=== PATIENT | female | born 1945 | race Caucasian/White ===

== ENCOUNTER → 2021-07-01 | Outpatient (CLI) | payer MEDICARE, OTHER | LOC: HEART 5 12:25 | DX: R06.00 Dyspnea, unspecified (principal); R04.2 Hemoptysis | CPT/HCPCS: 94060; 94729 ==

== ENCOUNTER → 2021-08-19 | Day surgery (SDC) | payer MEDICARE, OTHER ==
[~2021-08-19] MED LIST: ALPRAZOLAM0.5 MG PO; ASPIRIN325 MG PO; DESYREL 50 MG T50 MG PO; DULOXETINE HCL30 MG PO; FUROSEMIDE20 MG PO; GLUCOPHAGE 850850 MG PO; HYDROCODON-ACE1 EAC4 PO; LEVOTHYROXINE50 MCG PO; LISINOPRIL10 MG PO; PROVENTIL HFA6.7 GM INH; SYMBICORT 16010.2 GM INH; THEOPHYLLINE600 MG PO; VERAPAMIL ER240 MG PO
[2021-08-19 06:52] LABS: HEMOGLOBIN 14.7 gm/dl (12.3-15.3); RED BLOOD COUNT 4.2 M/UL (4.00-5.10); WHITE BLOOD COUNT 7.2 K/UL (4.5-11.0)
== END | disposition home or self-care (01) ==
LOC: OR 06:05
PROVIDERS: Internal Medicine Critical Care Medicine
DX: R04.2 Hemoptysis (principal); R06.02 Shortness of breath; R94.31 Abnormal electrocardiogram [ECG] [EKG]; Z20.822 Contact with and (suspected) exposure to COVID-19; Z79.82 Long term (current) use of aspirin; Z88.1 Allergy status to other antibiotic agents
CPT/HCPCS: 82962; 85027; 87015; 87070; 87116; 87205; 87206; 93005; J2704; J2930; J7030; U0002